=== PATIENT | female | born 1960 | race Caucasian/White ===

== ENCOUNTER 2017-03-04 08:55 | Emergency (ER) | payer OTHER ==
--- NOTE | 2017-03-04 09:23 | ER Document Report ---
HPI - HPI Patient complains to provider of: cough, fever Onset: Other Onset/Duration: Sudden Pain Level: 2 Context: 56-year-old non-smoker complaining of sudden onset myalgias, cough and fever since Sunday afternoon. she did get a flu shot this year. No chest pain or shortness of breath. No nausea vomiting or diarrhea. Associated Symptoms: None Exacerbated by: Denies - ROS ROS below otherwise negative: Yes Systems Reviewed and Negative: Yes All other systems reviewed and negative - REPRODUCTIVE Reproductive: DENIES: : Past Medical History - General Information source: Patient - Social History Smoking Status: Never Smoker Frequency of alcohol use: None Drug Abuse: None Lives with: Spouse/Significant other Family History: Reviewed & Not Pertinent - Past Medical History Cardiac Medical History: Reports: Hx Hypercholesterolemia, Hx Hypertension Skin Medical History: Reports Hx MRSA Infectious Medical History: Reports: Hx MRSA Past Surgical History: Reports: Hx Tubal Ligation - Immunizations Hx Diphtheria, Pertussis, Tetanus Vaccination: Yes Vertical Provider Document - CONSTITUTIONAL Agree With Documented VS: Yes General Appearance: No Apparent Distress - INFECTION CONTROL TRAVEL OUTSIDE OF THE [place] IN LAST 30 DAYS: No - HEENT HEENT: Pharyngeal Erythema - Minimal. negative: Conjuctival Injection, Tympanic Membrane Red - NECK Neck: Supple. negative: Lymphadenopathy-Left, Lymphadenopathy-Right - RESPIRATORY Respiratory: Other - Course cough, shallow breath sounds on the right, no rales or wheeze O2 Sat by Pulse Oximetry: 96 - CARDIOVASCULAR Cardiovascular: Regular Rate, Regular Rhythm - NEURO Level of Consciousness: Awake, Alert, Appropriate - DERM Integumentary: Warm, Dry, No Rash Course - Re-evaluation Re-evalutation: 03/04/17 10:41 Chest x-ray is negative per rad, lungs clear, equal brandon. 03/04/17 10:41 - Vital Signs Vital signs: Temp Pulse Resp BP Pulse Ox 102.5 F H 101 H 18 122/66 96 03/04/17 09:00 03/04/17 09:00 03/04/17 09:00 03/04/17 09:00 03/04/17 09:00 Discharge - Discharge Clinical Impression: Influenza-like illness Condition: Good Disposition: HOME, SELF-CARE Instructions: Acetaminophen, Influenza (OM) [id number] Additional Instructions: Plenty of fluids Use the metered-dose inhaler 2 puffs every 3 hours for the cough and congestion Rest Tylenol Motrin Tamiflu for 5 days Return to the emergency room if worse Copy of negative chest x-ray given to you Prescriptions: Oseltamivir Phosphate [Tamiflu 75 mg Capsule] 75 mg PO BID #10 capsule Forms: Return to Work Referrals: CHRISTIN DIAMOND MD [Primary Care Provider] - Follow up as needed
[2017-03-04] MEDS ORDERED: ALBUTEROL SULFATE 0.083% NEB 2.5 MG/3 ML AMPUL NEB ONE (09:24)
[2017-03-04] MEDS ORDERED: ACETAMINOPHEN 325 MG TABLET PO ONE (09:29)
--- NOTE | 2017-03-04 10:13 | RADIOLOGY REPORT (SQ) ---
EXAM DESCRIPTION: CHEST PA/LAT COMPLETED DATE/TIME: 03/04/2017 10:06 am REASON FOR STUDY: cough, fever COMPARISON: 01/08/2012 EXAM PARAMETERS: NUMBER OF VIEWS: two views TECHNIQUE: Digital Frontal and Lateral radiographic views of the chest acquired. RADIATION DOSE: NA LIMITATIONS: none FINDINGS: LUNGS AND PLEURA: No opacities, masses or pneumothorax. No pleural effusion. MEDIASTINUM AND HILAR STRUCTURES: No masses or contour abnormalities. HEART AND VASCULAR STRUCTURES: Heart normal size. No evidence for failure. BONES: No acute findings. HARDWARE: None in the chest. OTHER: No other significant finding. IMPRESSION: NO SIGNIFICANT RADIOGRAPHIC FINDING IN THE CHEST. TECHNICAL DOCUMENTATION: JOB ID: [id number] [employer]- All Rights Reserved
[2017-03-04] MEDS ORDERED: ALBUTEROL SULFATE HFA (90 MCG/PUFF) 200 PUFF/8.5 GM MDI IH ONE (10:37)
[2017-03-04 12:05] VITALS: BP 114/60
== END 2017-03-04 11:51 | disposition home or self-care (01) ==
LOC: ER 08:55
DX: J11.1 Influenza due to unidentified influenza virus with other respiratory manifestations (principal); R05 Cough; R50.9 Fever, unspecified; M79.1 Myalgia; I10 Essential (primary) hypertension
CPT/HCPCS: 94640; 99283; 71046; J3490